=== PATIENT | male | born 1995 | race American Indian/Alaskan Native ===

== ENCOUNTER 2016-12-13 02:44 | Emergency (ER) | payer SELFPAY ==
[2016-12-13 03:00] VITALS: BP 118/81
[2016-12-13 03:36] LABS: Basophils % (Auto) 0.5 % (0.0-1.8); Eosinophils % (Auto) 3.1 % (0.0-4.3); Hematocrit 42.1 % (35.5-45.6); Hemoglobin 14.4 gm/dl (11.8-15.2); Mean Corpuscular HGB Conc 34 % (32-34); Mean Corpuscular Hemoglobin 30 pg (28-32); Mean Corpuscular Volume 88 fl (84-94); Platelet Count 232 K/mm3 (140-440); Red Blood Count 4.76 M/mm3 (3.65-5.03); Red Cell Distribution Width 13.7 % (13.2-15.2); White Blood Count 6.2 K/mm3 (4.5-11.0)
[2016-12-13 03:51] LABS: Anion Gap 21 mmol/L; BUN/Creatinine Ratio 11.11; Blood Urea Nitrogen 10 mg/dL (9-20); Calcium 9.3 mg/dL (8.4-10.2); Carbon Dioxide 21 mmol/L (22-30); Chloride 102.9 mmol/L (98-107); Glucose 94 mg/dL (75-100); Potassium 4.1 mmol/L (3.6-5.0); Sodium 141 mmol/L (137-145)
[2016-12-13 03:53] LABS: INR 1.13 (0.87-1.13)
[2016-12-13 03:54] LABS: Partial Thromboplastin Time 31.4 Sec. (24.2-36.6)
--- NOTE | 2016-12-13 17:45 | ED Elopement Review ---
ED Pt Elopement review - Results review Lab results: Laboratory Tests 12/13/16 12/13/16 12/13/16 03:06 03:06 03:06 WBC 6.2 RBC 4.76 Hgb 14.4 Hct 42.1 MCV 88 MCH 30 MCHC 34 RDW 13.7 Plt Count 232 Lymph % (Auto) 41.4 H Schleicher % (Auto) 8.9 H Eos % (Auto) 3.1 Baso % (Auto) 0.5 Lymph # 2.6 Schleicher # 0.6 Eos # 0.2 Baso # 0.0 Seg Neutrophils % 46.1 Seg Neutrophils # 2.9 PT 14.4 INR 1.13 APTT 31.4 Sodium 141 Potassium 4.1 Chloride 102.9 Carbon Dioxide 21 L Anion Gap 21 BUN 10 Creatinine 0.9 Estimated GFR > 60 BUN/Creatinine Ratio 11.11 Glucose 94 Calcium 9.3 Troponin T < 0.010 - Call Back decision Pt Call Back Decision: Pt to F/U with PMD
== END 2016-12-13 04:20 | disposition left against medical advice (07) ==
LOC: ED 02:44
DX: R07.9 Chest pain, unspecified (principal); Z53.21 Procedure and treatment not carried out due to patient leaving prior to being seen by health care provider
CPT/HCPCS: 36415; 80048; 84484; 85025; 85610; 85730; 93005; 93010

== ENCOUNTER 2017-07-29 23:38 | Emergency (ER) | payer OTHER ==
[2017-07-29 23:55] VITALS: BP 107/61
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
[2017-07-30] MEDS ORDERED: MOTRIN PO ONE (10:55)
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
== END 2017-07-30 11:17 | disposition home or self-care (01) ==
LOC: ED 23:38
DX: S92.254A Nondisplaced fracture of navicular [scaphoid] of right foot, initial encounter for closed fracture (principal); V03.90XA Pedestrian on foot injured in collision with car, pick-up truck or van, unspecified whether traffic or nontraffic accident, initial encounter; Y93.01 Activity, walking, marching and hiking; Y92.89 Other specified places as the place of occurrence of the external cause; Y99.8 Other external cause status
CPT/HCPCS: 99284

== ENCOUNTER 2017-07-31 13:03 | Emergency (ER) | payer OTHER ==
[2017-07-31] MEDS ORDERED: NORCO 5/325 PO ONE (16:14)
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
[2017-07-31 17:18] VITALS: BP 118/67
--- NOTE | 2017-07-31 17:39 | Cat Scan Report ---
FINAL REPORT EXAM: CT HEAD/BRAIN WO CON HISTORY: headache TECHNIQUE: CT examination of the head without IV contrast PRIORS: None. FINDINGS: No acute air-fluid level visualized in the included air-filled sinuses. Minimal mucosal thickening ethmoid sinuses. Bone windows demonstrate no acute fracture. The brain is without mass, mass effect, hemorrhage, or acute infarct. There is no extra-axial intracranial bleed, brain bleed, or midline shift. The ventricles and sulci are age-appropriate. IMPRESSION: No acute CVA, intracranial bleed, or brain mass Minimal mucosal thickening ethmoid sinuses
== END 2017-07-31 18:38 | disposition home or self-care (01) ==
LOC: ED 13:03
DX: R51 Headache (principal)
CPT/HCPCS: 70450; 99283